=== PATIENT | male | born 1995 | race Caucasian/White ===

== ENCOUNTER 2021-09-10 08:39 | Emergency (ER) | payer OTHER ==
[~2021-09-10] VITALS: Ht 175.3 cm; Wt 97.7 kg
[2021-09-10 11:48] VITALS: BP 105/52
[2021-09-10] MEDS ORDERED: azithromycin 250mg tablet PO ONE (12:10)
[2021-09-10] MEDS ORDERED: PENICILLIN G BENZATHINE 2,400,000 UNIT/4 ML SYRINGE IM ONE (12:10)
[2021-09-10] MEDS ORDERED: CefTRIAXone 1000mg IM Kit (w/lidocaine diluent) IM ONE (12:10)
[2021-09-10] MEDS ORDERED: DOXY100C76 PO (12:13)
--- NOTE | 2021-09-10 13:09 | NUR ---
pt given pencillin in divided dose 2 ml each per shot .
== END 2021-09-10 13:21 | disposition home or self-care (01) ==
LOC: ER 08:40
DX: Z20.2 Contact with and (suspected) exposure to infections with a predominantly sexual mode of transmission (principal); R10.30 Lower abdominal pain, unspecified; R11.0 Nausea; Z79.2 Long term (current) use of antibiotics
CPT/HCPCS: 36415; 87491; 87591; 96372; 99284; J0561; J0696